=== PATIENT | male | born 1990 | race Caucasian/White ===

== ENCOUNTER 2017-05-27 11:43 | Emergency (ER) | payer OTHER ==
[2017-05-27 11:49] VITALS: BP 128/89; PULSE 71; TEMP 98.2; BMI 24.9
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
== END 2017-05-27 12:34 | disposition home or self-care (01) ==
LOC: JERFT 11:43
DX: S80.01XA Contusion of right knee, initial encounter (principal); V48.4XXA Person boarding or alighting a car injured in noncollision transport accident, initial encounter; Y92.488 Other paved roadways as the place of occurrence of the external cause; Y93.89 Activity, other specified; Y99.8 Other external cause status
CPT/HCPCS: 99281-25